=== PATIENT | male | born 1950 | race Caucasian/White ===

== ENCOUNTER 2016-10-17 21:59 | Emergency (ER) | payer OTHER ==
[~2016-10-17] VITALS: Ht 170.2 cm; Wt 68.2 kg
[2016-10-17] MEDS ORDERED: methylPREDNISolone SOD SUCC 125 MG/2 ML ONE (22:38)
[2016-10-17] MEDS ORDERED: ALBUTEROL/IPRATROPIUM 2.5MG/0.5MG, 3 ML ONE (22:43)
[2016-10-17] MEDS ORDERED: methylPREDNISolone SOD SUCC 125 MG/2 ML IVP ONE (23:00)
[2016-10-17] MEDS ORDERED: SODIUM CHLORIDE 0.9% 1,000ML IVBOLUS ONE (23:00)
[2016-10-17] MEDS ORDERED: SODIUM CHLORIDE FLUSH 10ML SYR IVF ONE (23:00)
[2016-10-17] MEDS ORDERED: ALBUTEROL/IPRATROPIUM 2.5MG/0.5MG, 3 ML NPPB ONE (23:00)
[2016-10-17 23:09] LABS: ASPARTATE AMINO TRANSFERASE 72 U/L (15-37); BLOOD UREA NITROGEN 17 mg/dL (7-18)
[2016-10-17] MEDS: PLEASE ENTER ALLERGIES MC SCH ×2 (23:46)
[2016-10-18] MEDS ORDERED: KETOROLAC 30 MG/1 ML ONE (00:40)
[2016-10-18 00:42] LABS: IS PT STATUS REG ER OR PRE ER? YES
[2016-10-18] MEDS ORDERED: OMNIPAQUE 350 MG/ML, 100ML BOTTLE ONE (00:46)
[2016-10-18] MEDS ORDERED: KETOROLAC 30 MG/1 ML IVPush ONE (01:00)
[2016-10-18 02:05] VITALS: BP 142/76
[2016-10-18] MEDS ORDERED: AZITHROMYCIN 500 MG TABLET ONE (02:08)
[2016-10-18] MEDS ORDERED: AZITHROMYCIN 500 MG TABLET PO ONE (02:30)
[2016-10-18] MEDS: PLEASE ENTER ALLERGIES MC SCH ×2 (02:47)
== END 2016-10-18 02:49 | disposition home or self-care (01) ==
LOC: ED 10-18 02:43
DX: J20.8 Acute bronchitis due to other specified organisms (principal); I10 Essential (primary) hypertension
CPT/HCPCS: 36415; 71020; 71275; 80053; 83605; 84145; 84484; 85025; 85610; 85730; 87040; 93005; 94640; 96361; 96374; 96375; 99285; J1885; J2930; J7030; Q9967; J7620